=== PATIENT | female | born 1935 | race Caucasian/White ===

== ENCOUNTER 2017-03-09 02:55 | Inpatient (IN) ==
--- NOTE | 2017-03-09 03:10 | Emergency Department Note ---
Arrival - Arrival Chief Complaint: Non-Specific Stated Complaint: hypoglycemia ED Nursing Triage Note: Patient to ED from group home via EMS with c/o episode of hypoglycemia, when nurse at [facility] checked it after patient fell from bed. initial glucose was 24, patient was given glucogon x2 and CBG increased to 54, and EMS was called. upon EMS arrival to facilty CBG was 81. Patient arrives to ED with CBG of 90. Patient has dementia so history is limited other than from paperwork from group home. 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 Patient is now awake and alert conversational and cooperative. Allergies/Adverse Reactions: Allergies Allergy/AdvReac Type Severity Reaction Status Date / Time Sulfa (Sulfonamide AdvReac Severe Confusion Verified 03/09/17 03:10 Antibiotics) Home Medications: Home Medications Medication Instructions Recorded Confirmed Type Aspirin [Ecotrin] 81 mg PO DAILY 10/05/14 02/16/17 History Diltiazem HCl [Diltiazem 24Hr Cd] 120 mg PO DAILY 10/05/14 02/16/17 History Furosemide Tab [Lasix Tab] 40 mg PO DAILY 10/05/14 02/16/17 History Insulin Detemir [Levemir] 20 unit SUBCUT BEDTIME 10/05/14 02/16/17 History Linagliptin [Tradjenta] 5 mg PO DAILY 10/05/14 02/16/17 History Meclizine [Antivert] 25 mg PO TID PRN 10/05/14 02/16/17 History Ranitidine Tab [Zantac Tab] 150 mg PO PRN PRN 10/05/14 02/16/17 History Simvastatin [Zocor] 40 mg PO BEDTIME 10/05/14 02/16/17 History Tizanidine HCl [Zanaflex] 4 mg PO TID PRN 10/05/14 02/16/17 History Potassium Chloride [Klor-Con] 1 packet PO DAILY 09/03/15 02/16/17 History predniSONE TAB 5 mg PO DAILY 09/03/15 02/16/17 History Bimatoprost 0.01% Oph Soln 1 drop BOTH EYES BEDTIME 02/16/17 02/16/17 History [Lumigan] Carvedilol [Coreg] 3.125 mg PO DAILY 02/16/17 02/16/17 History Diclofenac Potassium Tab [Cataflam] 50 mg PO DAILY 02/16/17 02/16/17 History Docusate Sodium [Colace] 200 mg PO BEDTIME 02/16/17 02/16/17 History Donepezil [Aricept] 5 mg PO BEDTIME 02/16/17 02/16/17 History Insulin Aspart [NovoLOG] 8 unit SUBCUT BID@1200,1700 02/16/17 02/16/17 History traMADol/ACETAMINOPH 37.5-325 1 tablet PO BID 02/16/17 02/16/17 History [Ultracet] Citalopram [CeleXA] 40 mg PO DAILY tablet 02/28/17 Rx Gabapentin Cap/Tab [Neurontin 400 mg PO TID capsule 02/28/17 Rx Cap/Tab] busPIRone [Buspar] 5 mg PO BID tablet 02/28/17 Rx Review of System - Review of System Constitutional: Absent: fever, night sweats Eyes: Absent: redness, vision change Head/Ears/Nose/Throat: Absent: epistaxis, nasal drainage Respiratory: Absent: respiratory distress, wheezing Cardiovascular: Absent: dyspnea on exertion Gastrointestinal: Absent: diarrhea, constipation Genitourinary female: Absent: dysuria Musculoskeletal: Absent: joint swelling, leg pain Skin: Absent: change in color, change in hair/nails Neurological: Absent: headache, numbness, paresthesias, vertigo Psychiatric: Absent: anxiety, visual hallucinations Endocrine: Absent: heat intolerance, polydipsia, polyuria Hematological/Lymphatic: Absent: easy bruising, lymphadenopathy Allergic/Immunologic: Absent: urticaria, itchy eyes Medical,Surgical,& Family Hx - Medical History Cardio: History of: Hypertension No history of: CAD, [place] Psychological: History of: Depression Neurology: History of: Dementia, Seizures HEENT: History of: Eye Problem (BLURRY VISION.) Endocrine: History of: Diabetes Mellitus (IDDM), Diabetes Mellitus (NIDDM), Dyslipidemia Rheumatology: History of;: Rheumatoid Arthritis Respiratory: History of: Asthma Genitourinary: History of: Recurring Urinary Tract Infections Gastrointestinal: History of: GERD, Hemorrhoids Musculoskeletal: History of: Back/Neck Problems (CHRONIC BACK PAIN.), Musculoskeletal Problems No history of: Amputation - Surgical History Cardiac Surgeries: Patient Denies: Cardiac Catheterization Thoracic Surgeries: Patient denies;: Organ Transplant, Lobectomy Neurologic Surgeries: Patient denies: Neurologic Surgery HEENT Surgeries: Surgical HX of: Tonsilectomy & Adenoidectomy Abdominal Surgeries: Surgical HX of: Abdominal Surgery (adrenal tumor removal), Appendectomy, Hernia Repair Reproductive Surgeries: Surgical HX of;: Gynecologic Surgery, Hysterectomy Patient denies;: Genitourinary Surgery - Family History Family History: Reports;: Family Diabetes, Family Heart Disease (congestive heart failure), Family Hypertension - Social History Smoking Status: Never smoker Frequency of Alcohol Use: None Type of Drug Use: None Exam Vital Signs: Vital Signs Temperature 95.2 F L 03/09/17 03:02 Pulse Rate 52 L 03/09/17 03:02 Respiratory Rate 18 03/09/17 03:49 Blood Pressure 159/53 03/09/17 03:02 O2 Sat by Pulse Oximetry 97 03/09/17 03:02 - General Exam limited due to: ALOC General appearance: alert, in no apparent distress - Head Head exam: Present: atraumatic - Eye Eye exam: Present: normal appearance, PERRL, EOMI - ENT ENT exam: Present: normal exam, normal oropharynx - Neck Neck exam: Present: normal inspection, full ROM - Chest Chest inspection: Present: normal inspection - Respiratory Respiratory exam: Present: normal lung sounds bilaterally - Cardiovascular Cardiovascular exam: Present: regular rate, normal rhythm - Abdominal Exam Abdominal exam: Present: soft, normal bowel sounds - Extremities Exam Extremities exam: Present: normal inspection, full ROM - Back Exam Back exam: Present: normal inspection, full ROM - Neurological Exam Neurological exam: Present: alert, CN II-XII intact - Skin Skin exam: Present: dry Course Course Narrative: The patient has a 21,000 white blood cell count and his episodes of shivering in the emergency department. Her original presenting complaint was hypoglycemia. A search for a source of a possible infection did not reveal the cause of the elevated white blood cell count. The chest x-ray was normal. The urinalysis was normal. Laboratory tests were normal. Blood cultures were sent. Since the patient is demented and is not a reliable source of history and because she has had episodes of visible chills it seems prudent that she should be treated with antibiotics and admitted to the hospital pending blood culture results and further evaluation. The case was discussed with the hospitalist who agreed to come to the emergency department and evaluate the patient. It is our recommendation that the patient should be admitted for observation. Results - Labs CBC & BMP: 03/09/17 03:31 03/09/17 03:31 Disposition Clinical Impression: Chills, Leukocytosis Disposition: Still a Patient Additional Instructions: The patient has a 21,000 white blood cell count and his episodes of shivering in the emergency department. Her original presenting complaint was hypoglycemia. A search for a source of a possible infection did not reveal the cause of the elevated white blood cell count. The chest x-ray was normal. The urinalysis was normal. Laboratory tests were normal. Blood cultures were sent. Since the patient is demented and is not a reliable source of history and because she has had episodes of visible chills it seems prudent that she should be treated with antibiotics and admitted to the hospital pending blood culture results and further evaluation. The case was discussed with the hospitalist who agreed to come to the emergency department and evaluate the patient. It is our recommendation that the patient should be admitted for observation.
[2017-03-09 03:46] LABS: Basophils # 0.1 10*3/uL (0.0-0.2); Basophils % 0.3 % (0.0-0.8); Eosinophils # 0.2 10*3/uL (0.0-0.87); Hematocrit 40.8 VOL% (35.7-47.0); Hemoglobin 13.8 GM/DL (12.0-16.0); Immature Granulocytes % 1.3 %; Immature Granulocytes Absolute 0.28 #; Lymphocytes # 2.5 10*3/uL (1.4-4.0); Lymphocytes % 11.8 % (21.3-54.2); Mean Corpuscular HGB Conc 33.8 GM/DL (32-36); Mean Corpuscular Hemoglobin 34 PG (27-34); Mean Corpuscular Volume 99.3 FL (87-102); Mean Platelet Volume 10.5 FL (9.6-12.0); Monocytes # 1.2 10*3/uL (0.11-0.8); Monocytes % 5.4 % (1.7-12.7); Neutrophils # 17.2 10*3/uL (1.4-7.4); Neutrophils % 80.2 % (38.7-73.9); Platelet Count 210 T/CUMM (130-400); Red Blood Count 4.11 MC/CUMM (3.8-5.5); Red Cell Distribution Width 12.4 % (9.3-17.3); White Blood Count 21.4 T/CUMM (4-12)
[2017-03-09 04:11] LABS: Albumin 3.5 G/DL (3.4-5.0); Bilirubin,Total 0.4 MG/DL (0.2-1.0); Calcium 9.3 MG/DL (8.5-10.1); Osmolality,Calculated 285.3 MOS/KG (273-304); Potassium 3.6 MMOL/L (3.5-5.1); Total Protein 6.3 G/DL (6.4-8.3)
[2017-03-09] MEDS ORDERED: PIPERACILLIN/TAZOBACTAM 3,375 MG in SODIUM CHLORIDE 0.9% 100 ML IV STA (04:31)
[2017-03-09] MEDS ORDERED: PIPERACILLIN/TAZOBACTAM 3,375 MG VIAL IV ONE (04:32)
[2017-03-09] MEDS ORDERED: SODIUM CHLORIDE 0.9% 100 ML IV ONE (04:32)
[2017-03-09 04:38] LABS: Band Neutrophils 2 % (0-10); Eosinophils 3 % (0-10); Lymphocytes 9 % (20-55); Segmented Neutrophils 83 % (50-85)
[2017-03-09 04:39] LABS: Platelet Estimate Normal; Total Cells Counted 100
[2017-03-09 05:13] LABS: Apearance,Urine CLEAR (Clear); Bilirubin,Urine Negative (Negative); Blood, Urine Negative (Negative); Glucose,Urine (UA) Negative (Negative); Ketones,Urine Negative (Negative); Mucus,Urine Occasional /LPF (Occasional); Nitrite,Urine Negative (Negative); Protein,Urine Negative; RBC,Urine <1 /HPF (0-4); Squamous Epithelial Cell,Urine Occasional /HPF (0-10); Urine Color Yellow (Yellow); Urine Specific Gravity 1.017 (1.001-1.035); Urine Urobilinogen < 2.0 EU/DL (0.2-1.0); WBC,Urine 2 /HPF (0-6)
[2017-03-09] MEDS ORDERED: VANCOMYCIN INJ 1,000 MG in SODIUM CHLORIDE 0.9% 250 ML IV STA (05:53)
[2017-03-09] MEDS ORDERED: VANCOMYCIN 1,000 MG VIAL ONE (05:55)
--- NOTE | 2017-03-09 06:45 | XRay Report ---
Exam: XR chest 1V portable Date: 03/09/2017 4:11 AM Indication: Elevated white blood cell count Comparison: 06/18/2016 Technical: AP Findings: Mild cardiac enlargement is present. ASVD is present. Lateral marginal osteophytes are present. There is calcification in tracheobronchial tree. Surgical changes present in the GE junction. No obvious consolidating infiltrate or effusion or pneumothorax. Impression: 1. Mild cardiomegaly without decompensation 2. Mild scarring in the tracheobronchial airways with calcifications without acute infiltrates 3. ASVD 4. Status post surgical changes GE junction PROCEDURE INTERPRETED AT [facility] DEPARTMENT OF RADIOLOGY Final Report Signed by: Dr. Victoriano Pizarro
[2017-03-09] MEDS ORDERED: SODIUM CHLORIDE 0.9% 500 ML IV STA (12:32)
[2017-03-09] MEDS ORDERED: ACETAMINOPHEN 325 MG TABLET PO PRN (12:32)
[2017-03-09] MEDS ORDERED: ONDANSETRON 4 MG/2 ML VIAL IV PRN (12:32)
[2017-03-09] MEDS ORDERED: GLUCAGON 1 MG VIAL IM PRN (12:32)
[2017-03-09] MEDS ORDERED: DEXTROSE 50% 25 GM/50 ML VIAL IV PRN (12:32)
[2017-03-09] MEDS ORDERED: MAGNESIUM HYDROXIDE SUSP 30 ML UDCUP PO PRN (12:35)
[2017-03-09] MEDS ORDERED: tiZANidine 4 MG TABLET PO PRN (12:35)
--- NOTE | 2017-03-09 12:41 | Family Practice History&Phys ---
Assessment and Plan (1) Hypoglycemia Status: Acute Assessment and plan: 03/09/2017: Blood sugars will be watched closely. Will hold her insulin for now. Current Visit: Yes (2) Leukocytosis Status: Acute Assessment and plan: 03/09/2017: This may be due to her steroid therapy but infectious etiology will be evaluated. Current Visit: Yes History of Present Illness Chief complaint: Hypoglycemia History of present illness: Ms. Cabrera is a 81 year old female Patient 81-year-old white female presents emergency room with recurring episodes of hypoglycemia. Patient does have dementia and is unable provide much in the way of useful history. She is denies any urinary symptoms she has not had any cough or any respiratory symptoms. Patient states she is not having any abdominal pain or nausea or vomiting. She did eat breakfast after arriving here in the emergency room repeat blood sugar dropped back down to 88 shortly thereafter. Patient has back pain which is a chronic problem for her. Home Medications Medication Instructions Recorded Confirmed Type Aspirin [Ecotrin] 81 mg PO DAILY 10/05/14 03/09/17 History Diltiazem HCl [Diltiazem 24Hr Cd] 120 mg PO DAILY 10/05/14 03/09/17 History Furosemide Tab [Lasix Tab] 40 mg PO DAILY 10/05/14 03/09/17 History Insulin Detemir [Levemir] 20 unit SUBCUT BEDTIME 10/05/14 03/09/17 History Linagliptin [Tradjenta] 5 mg PO DAILY 10/05/14 03/09/17 History Meclizine [Antivert] 25 mg PO TID PRN 10/05/14 03/09/17 History Ranitidine Tab [Zantac Tab] 150 mg PO Q24H PRN 10/05/14 03/09/17 History Simvastatin [Zocor] 40 mg PO BEDTIME 10/05/14 03/09/17 History Tizanidine HCl [Zanaflex] 4 mg PO TID PRN 10/05/14 03/09/17 History predniSONE TAB 5 mg PO DAILY 09/03/15 03/09/17 History Bimatoprost 0.01% Oph Soln 1 drop BOTH EYES BEDTIME 02/16/17 03/09/17 History [Lumigan] Carvedilol [Coreg] 3.125 mg PO DAILY 02/16/17 03/09/17 History Diclofenac Potassium Tab [Cataflam] 50 mg PO DAILY 02/16/17 03/09/17 History Docusate Sodium [Colace] 200 mg PO BEDTIME 02/16/17 03/09/17 History Donepezil [Aricept] 5 mg PO BEDTIME 02/16/17 03/09/17 History Insulin Aspart [NovoLOG] 8 unit SUBCUT BID@1200,1700 02/16/17 03/09/17 History traMADol/ACETAMINOPH 37.5-325 1 tablet PO BID 02/16/17 03/09/17 History [Ultracet] Citalopram [CeleXA] 40 mg PO DAILY tablet 02/28/17 03/09/17 Rx Gabapentin Cap/Tab [Neurontin 400 mg PO TID capsule 02/28/17 03/09/17 Rx Cap/Tab] busPIRone [Buspar] 5 mg PO BID tablet 02/28/17 03/09/17 Rx Magnesium Hydroxide [Milk of 30 ml PO Q24H PRN 03/09/17 03/09/17 History Magnesia] Potassium Chloride 20 meq PO DAILY 03/09/17 03/09/17 History Allergies Allergy/AdvReac Type Severity Reaction Status Date / Time Sulfa (Sulfonamide AdvReac Severe Confusion Verified 03/09/17 03:10 Antibiotics) - Constitutional Constitutional: Present: weakness. Absent: chills, fever(s) - EENT Eyes: Absent: blurry vision, loss of vision Ears: Absent: decreased hearing, ear pain Nose, mouth and throat: Absent: nasal congestion, sinus pressure, sore throat - Cardiovascular Cardiovascular: Absent: chest pain at rest, dyspnea, orthopnea, palpitations, PND - Respiratory Respiratory: Absent: cough, dyspnea, wheezing - Gastrointestinal Gastrointestinal: Absent: abdominal pain, diarrhea, hematemesis, hematochezia, nausea, vomiting - Genitourinary Genitourinary: Absent: dysuria, hematuria, urinary frequency, urinary hesitancy - Musculoskeletal Musculoskeletal: Present: back pain (Chronic). Absent: joint swelling - Neurological Neurological: Absent: confusion, focal weakness, numbness, paresthesias - Psychiatric Psychiatric: Absent: anxiety, confusion, depression - Endocrine Endocrine: Absent: fatigue, polydipsia, polyphagia - Hematologic/Lymphatic Hematologic/Lymphatic: Absent: easy bleeding, easy bruising Medical,Surgical,& Family Hx - Medical History Cardio: History of: Hypertension No history of: CAD, [place] Psychological: History of: Depression Neurology: History of: Dementia, Seizures HEENT: History of: Eye Problem (BLURRY VISION.) Endocrine: History of: Diabetes Mellitus (IDDM), Diabetes Mellitus (NIDDM), Dyslipidemia Rheumatology: History of;: Rheumatoid Arthritis Respiratory: History of: Asthma Genitourinary: History of: Recurring Urinary Tract Infections Gastrointestinal: History of: GERD, Hemorrhoids Musculoskeletal: History of: Back/Neck Problems (CHRONIC BACK PAIN.), Musculoskeletal Problems No history of: Amputation - Surgical History Cardiac Surgeries: Patient Denies: Cardiac Catheterization Thoracic Surgeries: Patient denies;: Organ Transplant, Lobectomy Neurologic Surgeries: Patient denies: Neurologic Surgery HEENT Surgeries: Surgical HX of: Tonsilectomy & Adenoidectomy Abdominal Surgeries: Surgical HX of: Abdominal Surgery (adrenal tumor removal), Appendectomy, Hernia Repair Reproductive Surgeries: Surgical HX of;: Gynecologic Surgery, Hysterectomy Patient denies;: Genitourinary Surgery - Family History Family History: Reports;: Family Diabetes, Family Heart Disease (congestive heart failure), Family Hypertension - Social History Smoking Status: Never smoker Frequency of Alcohol Use: None Type of Drug Use: None Exam - Constitutional Vitals: Period Temp Pulse Resp BP Sys/Llamas Pulse Ox Last 24 Hr 95.2 F-97.6 F 48-55 16-18 126-159/45-57 97-100 Exam: General: Objective patient is a well-developed white female in no acute distress. Patient's dementia prevents her from providing much in the way of useful history. HEENT: Pupils equal and reactive to light. Patent nares and airway Neck: No meningismus, adenopathy, thyromegaly. There are no auscultated carotid bruits. Cardiovascular: Regular rhythm. No murmurs or gallops Chest: Clear to auscultation without rales rhonchi wheezes. Abdomen: Soft nontender to palpation No masses, rebound, guarding or tenderness. Neuro: Cranial nerves intact and DTRs and strength symmetric in all extremities. Dermatologic: No evidence of abnormal lesions or masses. Musculoskeletal: There is no joint swelling or tenderness or deformity. Extremities: There is no calf swelling or tenderness. Results - Labs CBC & BMP: 03/09/17 03:31 03/09/17 03:31 Lab Results: I have reviewed the past 24 hour labs - Diagnostic Findings Procedure: Chest x-ray: report reviewed by me (No acute abnormality)
[2017-03-09] MEDS: GABAPENTIN 400 MG CAPSULE PO SCH ×2 (18:18→21:29)
[2017-03-09] MEDS: SODIUM CHLORIDE 0.45% 1,000 ML IV SCH ×2 (18:18→21:45)
[2017-03-09] MEDS: PIPERACILLIN/TAZOBACTAM 3,375 MG in SODIUM CHLORIDE 0.9% 100 ML IV SCH (18:19)
[2017-03-09] MEDS: INSULIN REGULAR 100 UNIT/ML SUBCUT SCH ×2 (18:30→21:44)
[2017-03-09] MEDS ORDERED: ENOXAPARIN 40 MG/0.4 ML SYRINGE SUBCUT SCH (21:00)
[2017-03-09] MEDS ORDERED: DONEPEZIL 5 MG TABLET PO SCH (21:00)
[2017-03-09] MEDS ORDERED: BIMATOPROST 0.01% OPH SOLN 2.5 ML BOTTLE BOTH EYES SCH (21:00)
[2017-03-09] MEDS: DOCUSATE SODIUM 100 MG CAPSULE PO SCH (21:22)
[2017-03-09] MEDS: ACETAMINOPHEN 325 MG TABLET PO SCH (21:23)
[2017-03-09] MEDS: busPIRone 5 MG TABLET PO SCH (21:23)
[2017-03-09] MEDS: traMADol 50 MG TABLET PO SCH (21:24)
[2017-03-10] MEDS: PIPERACILLIN/TAZOBACTAM 3,375 MG in SODIUM CHLORIDE 0.9% 100 ML IV SCH ×2 (03:00→09:46)
[2017-03-10 05:45] LABS: Basophils # 0.1 10*3/uL (0.0-0.2); Basophils % 0.5 % (0.0-0.8); Eosinophils # 0.3 10*3/uL (0.0-0.87); Eosinophils % 3.2 % (0.00-10.9); Hematocrit 35.9 VOL% (35.7-47.0); Immature Granulocytes % 0.5 %; Immature Granulocytes Absolute 0.05 #; Lymphocytes # 3.3 10*3/uL (1.4-4.0); Lymphocytes % 31.8 % (21.3-54.2); Mean Corpuscular HGB Conc 32.9 GM/DL (32-36); Mean Corpuscular Hemoglobin 33 PG (27-34); Mean Corpuscular Volume 101.1 FL (87-102); Mean Platelet Volume 10.8 FL (9.6-12.0); Monocytes # 0.9 10*3/uL (0.11-0.8); Monocytes % 8.5 % (1.7-12.7); Neutrophils # 5.8 10*3/uL (1.4-7.4); Neutrophils % 55.5 % (38.7-73.9); Platelet Count 181 T/CUMM (130-400); Red Blood Count 3.55 MC/CUMM (3.8-5.5); Red Cell Distribution Width 12.3 % (9.3-17.3)
[2017-03-10] MEDS: SODIUM CHLORIDE 0.45% 1,000 ML IV SCH ×2 (05:50→14:32)
[2017-03-10 05:58] LABS: Hemoglobin 11.8 GM/DL (12.0-16.0); White Blood Count 10.5 T/CUMM (4-12)
[2017-03-10 06:17] LABS: Calcium 8.5 MG/DL (8.5-10.1); Osmolality,Calculated 285.1 MOS/KG (273-304)
--- NOTE | 2017-03-10 07:48 | Family Practice Progress Note ---
Family Practice - PN: Subj Interval history: Patient had a fairly good night but had 2 bouts of diarrhea last night. She denies any abdominal pain and she is not having any cough or respiratory symptoms. Exam (Progress Note) - Constitutional Vitals: Period Temp Pulse Resp BP Sys/Llamas Pulse Ox Last 24 Hr 97.0 F-98.4 F 50-68 16-20 69-152/42-58 95-99 Exam: Objective well-developed white female who is awake alert she has her usual confusion. Patient is noted to have a tiny spot of erythema on her left second toe and a small early skin breakdown in her sacral area. Will ask wound care to see her. Cardiovascular: Heart rates regular without murmurs Respiratory: Lungs clear to auscultation bilaterally. Abdomen: Abdomen soft and nontender to palpation. Results - Labs CBC & BMP: 03/10/17 05:28 03/10/17 05:28 Lab Results: I have reviewed the past 24 hour labs Assessment and Plan (1) Hypoglycemia Status: Acute Assessment and plan: 03/09/2017: Blood sugars will be watched closely. Will hold her insulin for now. 03/10/2017: Patient's blood sugars have been well controlled through the night with no hypoglycemia. Current Visit: Yes (2) Leukocytosis Status: Acute Assessment and plan: 03/09/2017: This may be due to her steroid therapy but infectious etiology will be evaluated. 03/10/2017: Her white blood count has normalized. Stool studies have been ordered. Current Visit: Yes
[2017-03-10] MEDS: INSULIN REGULAR 100 UNIT/ML SUBCUT SCH ×3 (08:52→17:45)
[2017-03-10] MEDS ORDERED: DILTIAZEM CD 240 MG CAPSULE PO SCH (09:00)
[2017-03-10] MEDS ORDERED: DILTIAZEM CD 120 MG CAPSULE PO SCH (09:00)
[2017-03-10] MEDS ORDERED: ASPIRIN EC 81 MG TABLET PO SCH (09:00)
[2017-03-10] MEDS ORDERED: CARVEDILOL 3.125 MG TABLET PO SCH (09:00)
[2017-03-10] MEDS ORDERED: predniSONE 5 MG TABLET PO SCH (09:00)
[2017-03-10] MEDS ORDERED: PANTOPRAZOLE 40 MG TABLET PO SCH (09:00)
[2017-03-10] MEDS ORDERED: FUROSEMIDE 40 MG TABLET PO SCH (09:00)
[2017-03-10] MEDS ORDERED: CITALOPRAM 20 MG TABLET PO SCH (09:00)
[2017-03-10] MEDS ORDERED: sitaGLIPtin 100 MG TABLET PO SCH ×2 (09:00)
[2017-03-10] MEDS: busPIRone 5 MG TABLET PO SCH (09:33)
[2017-03-10] MEDS: DOCUSATE SODIUM 100 MG CAPSULE PO SCH (09:35)
[2017-03-10] MEDS: GABAPENTIN 400 MG CAPSULE PO SCH ×2 (09:36→17:36)
[2017-03-10] MEDS: ACETAMINOPHEN 325 MG TABLET PO SCH (09:37)
[2017-03-10] MEDS: traMADol 50 MG TABLET PO SCH (09:37)
[2017-03-10] MEDS ORDERED: SKIN HEALING OINT (AQUAPHOR) 50 GM TUBE TOP PRN (11:14)
[2017-03-10] MEDS ORDERED: ZINC OXIDE PASTE 113 GM TUBE TOP SCH (11:30)
--- NOTE | 2017-03-10 16:17 | Discharge Summary ---
Hospital Course - Hospital Course Hospital Course: Patient 81-year-old white female admitted to the emergency room with leukocytosis and slight confusion. She was found to be hypoglycemic. Patient had no real complaint of any pain or discomfort anywhere. She is admitted my services cultures the blood were obtained which were negative. Patient had had some brief diarrhea but it subsided and she had no diarrhea on the day of discharge. Patient returned to her normal and was anxious to return to the assisted. She will be discharged later today and I will follow-up with her in the assisted. Diagnosis - Discharge Diagnosis (1) Hypoglycemia Status: Acute (2) Leukocytosis Status: Acute Discharge Plan - Discharge Data Disposition: Disch To Home/Self Care Condition at Discharge: Stable Discharge Diet: advance to your usual diet Activity: as per physical therapy Hygiene: no restrictions Weight Bearing at Discharge: full weight bearing Driving: no restrictions Contact your physician if you experience:: fever over 101 - Discharge Medications New Skin Healing Oint (Aquaphor) [Aquaphor] 1 applic TOP PRN PRN #60 mg PRN Reason: Dry Skin Continue Insulin Detemir [Levemir] 20 unit SUBCUT BEDTIME Tizanidine HCl [Zanaflex] 4 mg PO TID PRN PRN Reason: Pain Furosemide Tab [Lasix Tab] 40 mg PO DAILY Linagliptin [Tradjenta] 5 mg PO DAILY Ranitidine Tab [Zantac Tab] 150 mg PO Q24H PRN PRN Reason: Reflux Simvastatin [Zocor] 40 mg PO BEDTIME Meclizine [Antivert] 25 mg PO TID PRN PRN Reason: Dizziness Aspirin [Ecotrin] 81 mg PO DAILY predniSONE TAB 5 mg PO DAILY Magnesium Hydroxide [Milk of Magnesia] 30 ml PO Q24H PRN PRN Reason: Constipation Potassium Chloride 20 meq PO DAILY dilTIAZem HCl [Diltiazem ER (24 hr)] 120 mg PO DAILY traMADol/ACETAMINOPH 37.5-325 [Ultracet] 1 tablet PO BID busPIRone [Buspar] 5 mg PO BID tablet Citalopram [CeleXA] 40 mg PO DAILY tablet Gabapentin Cap/Tab [Neurontin Cap/Tab] 400 mg PO TID capsule Carvedilol [Coreg] 3.125 mg PO DAILY Docusate Sodium [Colace] 200 mg PO BEDTIME Diclofenac Potassium Tab [Cataflam] 50 mg PO DAILY Bimatoprost 0.01% Oph Soln [Lumigan] 1 drop BOTH EYES BEDTIME Donepezil [Aricept] 5 mg PO BEDTIME Insulin Aspart [NovoLOG] 8 unit SUBCUT BID@1200,1700 - Follow Up or Referral - Forms/Instructions Exam - Constitutional Vitals: Period Temp Pulse Resp BP Sys/Llamas Pulse Ox Last 24 Hr 97.0 F-98.4 F 55-72 16-20 69-198/42-79 94-97 Exam: Objective well-developed white female who is awake alert she has her usual confusion. Patient states he feels much better and is ready go back to the assisted. Cardiovascular: Heart rates regular without murmurs Respiratory: Lungs clear to auscultation bilaterally. Abdomen: Abdomen soft and nontender to palpation. Discharge Results Procedures and tests throughout hospitalization: Pending Orders 03/09/17 04:37 Blood Culture Stat 03/10/17 Urine Culture Stat 03/10/17 07:44 Stool Culture Stat stool [C. Diff Toxins A & B] Stat Labs on day of discharge: Labs from last 24 hours 03/10/17 03/10/17 03/10/17 11:22 07:20 05:28 WBC RBC Hgb Hct MCV MCH MCHC RDW Plt Count MPV Neut % (Auto) Lymph % (Auto) [place] % (Auto) Eos % (Auto) Baso % (Auto) Neut # (Auto) Lymph # (Auto) [place] # (Auto) Eos # (Auto) Baso # (Auto) Immature Gran % Nucleated RBC % Immature Gran # Nucleated RBCs # Immature Plt Fraction Sodium 142 Potassium 5.0 Chloride 107 Carbon Dioxide 31 Anion Gap 9.0 BUN 17 Creatinine 1.00 GFR Calculation 58 BUN/Creatinine Ratio 17.00 Glucose 120 H POC Glucose 162 H 125 H Calculated Osmolality 285.1 Calcium 8.5 03/10/17 03/09/17 05:28 21:35 WBC 10.5 D RBC 3.55 L Hgb 11.8 L D Hct 35.9 MCV 101.1 MCH 33 MCHC 32.9 RDW 12.3 Plt Count 181 MPV 10.8 Neut % (Auto) 55.5 Lymph % (Auto) 31.8 [place] % (Auto) 8.5 Eos % (Auto) 3.2 Baso % (Auto) 0.5 Neut # (Auto) 5.8 Lymph # (Auto) 3.3 [place] # (Auto) 0.9 H Eos # (Auto) 0.3 Baso # (Auto) 0.1 Immature Gran % 0.5 Nucleated RBC % 0.0 Immature Gran # 0.05 Nucleated RBCs # 0.00 Immature Plt Fraction 0.0 Sodium Potassium Chloride Carbon Dioxide Anion Gap BUN Creatinine GFR Calculation BUN/Creatinine Ratio Glucose POC Glucose 140 H Calculated Osmolality Calcium Preliminary micro results at discharge 03/09/17 04:37 Blood Culture - Preliminary Blood No growth at 1 day 03/09/17 04:22 Blood Culture - Preliminary Blood No growth at 1 day 03/10/2017: Blood cultures are negative. DS: Provider Date of admission: 03/09/17 12:32 Primary care physician: Lemuel Avendaño MD Attending physician on admission: Lemuel Avendaño MD Consults: 03/09/17 12:32 Consult to Case Mgmt/Social Srvs [CONS] Routine Reason for Case Mgmt/Social Srvs: Discharge Planning 03/09/17 17:21 Consult to [facility], Educator [CONS] Routine Reason for Associate Dean: Other Consult Comment: Multiple hypoglycemic episodes 03/10/17 07:44 Consult to Wound Care - [place] [CONS] Routine Reason for Wound Care: Wound Care Management Discharging clinician: Lemuel Avendaño MD Expected date of discharge: 03/10/17
[2017-03-10 16:40] VITALS: BP 127/48
== END 2017-03-10 17:57 | DRG 639 ==
LOC: EDBD → EDUNIT# → N.ED 02:55 → N.EDINP 12:32 → N.2E 15:44
PROVIDERS: ADMIT Family Medicine; ATTEND Family Medicine

== ENCOUNTER 2020-03-08 20:10 | Observation (INO) ==
[2020-03-08] MEDS ORDERED: DEXTROSE 50% 25 GM/50 ML SYRINGE IV ONE (20:22)
[2020-03-08] MEDS ORDERED: DEXTROSE 50% 25 GM/50 ML VIAL IV STA (20:23)
[2020-03-08 20:40] LABS: Basophils # 0.1 10*3/uL (0.0-0.2); Basophils % 0.3 % (0.0-0.8); Eosinophils # 0.1 10*3/uL (0.0-0.87); Eosinophils % 0.3 % (0.00-10.9); Hematocrit 36.9 VOL% (35.7-47.0); Hemoglobin 11.8 GM/DL (12.0-16.0); Immature Granulocytes % 0.6 %; Immature Granulocytes Absolute 0.12 #; Lymphocytes % 10.4 % (21.3-54.2); Mean Corpuscular Volume 101.1 FL (87-102); Mean Platelet Volume 10.6 FL (9.6-12.0); Monocytes % 4.3 % (1.7-12.7); Neutrophils % 84.1 % (38.7-73.9); Platelet Count 158 T/CUMM (130-400); Red Blood Count 3.65 MC/CUMM (3.8-5.5); Red Cell Distribution Width 12.5 % (9.3-17.3); White Blood Count 18.8 T/CUMM (4-12)
[2020-03-08 20:57] LABS: Albumin 3.2 G/DL (3.4-5.0); Bilirubin,Total 0.4 MG/DL (0.2-1.0); Calcium 8.4 MG/DL (8.5-10.1); Total Protein 6.4 G/DL (6.4-8.3)
[2020-03-08 21:09] LABS: Amorphous Crystals,Urine Occasional /HPF (Few); Apearance,Urine Slightly Hazy (Clear); Bilirubin,Urine Negative (Negative); Blood, Urine Negative (Negative); Glucose,Urine (UA) >=500 mg/dL (Negative); Hyaline Casts,Urine 100 /LPF (0-3); Ketones,Urine Negative (Negative); Mucus,Urine Occasional /LPF (Occasional); Nitrite,Urine Negative (Negative); Protein,Urine Negative; Squamous Epithelial Cell,Urine Occasional /HPF (0-10); Urine Color Yellow (Yellow); Urine Specific Gravity 1.014 (1.001-1.035); Urine Urobilinogen < 2.0 EU/DL (0.2-1.0); WBC,Urine 3 /HPF (0-6)
[2020-03-08] MEDS ORDERED: cefTRIAXone 1,000 MG in SODIUM CHLORIDE 0.9% 100 ML IV STA (21:43)
[2020-03-08] MEDS ORDERED: ACETAMINOPHEN 325 MG TABLET PO PRN (22:08)
[2020-03-08] MEDS ORDERED: GLUCAGON 1 MG VIAL IM PRN (22:08)
[2020-03-08] MEDS ORDERED: ONDANSETRON 4 MG/2 ML VIAL IV PRN (22:08)
[2020-03-08] MEDS ORDERED: DEXTROSE 50% 25 GM/50 ML VIAL IV PRN (22:08)
[2020-03-08] MEDS: SODIUM CHLORIDE 0.9% 1,000 ML IV SCH (23:20)
[2020-03-08] MEDS: INSULIN REGULAR 100 UNIT/ML SUBCUT SCH (23:55)
[2020-03-09 05:45] LABS: Basophils % 0.3 % (0.0-0.8); Eosinophils # 0.2 10*3/uL (0.0-0.87); Eosinophils % 1.9 % (0.00-10.9); Hematocrit 35.4 VOL% (35.7-47.0); Hemoglobin 11.5 GM/DL (12.0-16.0); Immature Granulocytes % 0.5 %; Immature Granulocytes Absolute 0.06 #; Lymphocytes # 3.6 10*3/uL (1.4-4.0); Lymphocytes % 29.9 % (21.3-54.2); Mean Corpuscular HGB Conc 32.5 GM/DL (32-36); Mean Corpuscular Volume 99.4 FL (87-102); Monocytes % 8.1 % (1.7-12.7); Neutrophils % 59.3 % (38.7-73.9); Platelet Count 157 T/CUMM (130-400); Red Blood Count 3.56 MC/CUMM (3.8-5.5); Red Cell Distribution Width 12.4 % (9.3-17.3); White Blood Count 11.9 T/CUMM (4-12)
[2020-03-09 06:42] LABS: Albumin 2.9 G/DL (3.4-5.0); Calcium 8.6 MG/DL (8.5-10.1); Osmolality,Calculated 287.3 MOS/KG (273-304); Total Protein 6.2 G/DL (6.4-8.3)
[2020-03-09] MEDS: INSULIN REGULAR 100 UNIT/ML SUBCUT SCH ×4 (07:27→23:39)
[2020-03-09] MEDS ORDERED: LEVOFLOXACIN INJ 500 MG in PREMIX 1 EACH IV ONE (08:02)
[2020-03-09] MEDS: PANTOPRAZOLE 40 MG TABLET PO SCH (09:32)
[2020-03-09] MEDS: SODIUM CHLORIDE 0.9% 1,000 ML IV SCH ×2 (09:39→09:40)
[2020-03-09] MEDS ORDERED: HALOPERIDOL 5 MG/ML AMP IM PRN (11:41)
[2020-03-09] MEDS ORDERED: HALOPERIDOL 5 MG/ML AMP IM ONE (11:44)
[2020-03-09] MEDS ORDERED: MAGNESIUM HYDROXIDE SUSP 30 ML UDCUP PO PRN (19:21)
[2020-03-09] MEDS ORDERED: tiZANidine 4 MG TABLET PO PRN (19:55)
[2020-03-09] MEDS: TRAMADOL ACETAMINOPHEN PO SCH (20:19)
[2020-03-09] MEDS: QUEtiapine 25 MG TABLET PO SCH ×2 (20:21→22:00)
[2020-03-09] MEDS: DONEPEZIL 5 MG TABLET PO SCH ×2 (20:21→22:00)
[2020-03-09] MEDS: busPIRone 10 MG TABLET PO SCH ×2 (20:21→22:00)
[2020-03-09] MEDS: GABAPENTIN 400 MG CAPSULE PO SCH ×2 (20:21→22:00)
[2020-03-09] MEDS: SIMVASTATIN 40 MG TABLET PO SCH ×2 (20:22→22:00)
[2020-03-09] MEDS: BIMATOPROST 0.01% OPH SOLN 2.5 ML BOTTLE BOTH EYES SCH ×2 (20:22→22:00)
[2020-03-09] MEDS: MEMANTINE 10 MG TABLET PO SCH ×2 (20:22→22:00)
[2020-03-09] MEDS: DOCUSATE SODIUM 100 MG CAPSULE PO SCH ×2 (20:22→22:00)
[2020-03-09] MEDS: FLUoxetine 20 MG CAPSULE PO SCH ×2 (20:25→22:00)
[2020-03-09] MEDS ORDERED: LORazepam 2 MG/1 ML VIAL IV ONE (20:57)
[2020-03-09] MEDS ORDERED: cefTRIAXone 1,000 MG in SYRINGE 1 EACH IV SCH (21:00)
[2020-03-10] MEDS ORDERED: LORazepam 2 MG/1 ML VIAL IV ONE (01:30)
[2020-03-10] MEDS: SODIUM CHLORIDE 0.9% 1,000 ML IV SCH (02:51)
[2020-03-10] MEDS: INSULIN REGULAR 100 UNIT/ML SUBCUT SCH ×2 (03:23→08:50)
[2020-03-10 06:00] LABS: Basophils % 0.4 % (0.0-0.8); Eosinophils # 0.2 10*3/uL (0.0-0.87); Eosinophils % 1.9 % (0.00-10.9); Hematocrit 35.3 VOL% (35.7-47.0); Hemoglobin 11.5 GM/DL (12.0-16.0); Immature Granulocytes % 0.4 %; Immature Granulocytes Absolute 0.04 #; Lymphocytes # 2.6 10*3/uL (1.4-4.0); Lymphocytes % 27.5 % (21.3-54.2); Mean Corpuscular HGB Conc 32.6 GM/DL (32-36); Mean Corpuscular Volume 98.6 FL (87-102); Mean Platelet Volume 10.9 FL (9.6-12.0); Monocytes % 7.4 % (1.7-12.7); Neutrophils % 62.4 % (38.7-73.9); Platelet Count 172 T/CUMM (130-400); Red Blood Count 3.58 MC/CUMM (3.8-5.5); Red Cell Distribution Width 12.3 % (9.3-17.3); White Blood Count 9.4 T/CUMM (4-12)
[2020-03-10 06:19] LABS: Calcium 8.6 MG/DL (8.5-10.1); Osmolality,Calculated 287.3 MOS/KG (273-304)
[2020-03-10 06:30] LABS: Hypochromasia 1+; Ovalocytes Slight; Platelet Estimate Adequate
[2020-03-10 07:51] VITALS: BP 151/78
[2020-03-10] MEDS ORDERED: carvediloL 3.125 MG TABLET PO SCH (08:00)
[2020-03-10] MEDS: PANTOPRAZOLE 40 MG TABLET PO SCH (08:49)
[2020-03-10] MEDS: GABAPENTIN 400 MG CAPSULE PO SCH (08:49)
[2020-03-10] MEDS: MEMANTINE 10 MG TABLET PO SCH (08:49)
[2020-03-10] MEDS: FLUoxetine 20 MG CAPSULE PO SCH (08:49)
[2020-03-10] MEDS ORDERED: FUROSEMIDE 40 MG TABLET PO SCH (09:00)
[2020-03-10] MEDS ORDERED: DICLOFENAC SODIUM 50 MG TABLET PO SCH (09:00)
[2020-03-10] MEDS ORDERED: busPIRone 5 MG TABLET PO SCH (09:00)
[2020-03-10] MEDS ORDERED: ASPIRIN EC 81 MG TABLET PO SCH (09:00)
[2020-03-10] MEDS ORDERED: CYANOCOBALAMIN 500 MCG TABLET PO SCH (09:00)
[2020-03-10] MEDS ORDERED: INSULIN GLARGINE 100 UNIT/ML SUBCUT SCH (09:00)
[2020-03-10] MEDS ORDERED: DILTIAZEM CD 120 MG CAPSULE PO SCH (09:00)
[2020-03-10] MEDS ORDERED: traMADol 50 MG TABLET PO SCH ×2 (09:30)
[2020-03-10] MEDS ORDERED: sitaGLIPtin 100 MG TABLET PO SCH (09:30)
[2020-03-10] MEDS ORDERED: ACETAMINOPHEN 325 MG TABLET PO SCH (09:30)
[2020-03-10] MEDS: TRAMADOL ACETAMINOPHEN PO SCH (10:20)
== END 2020-03-10 10:55 ==
LOC: EDUNIT# → EDBD → N.ED 20:10 → N.EDINP 20:10 → N.3E 22:47
PROVIDERS: ADMIT Family Medicine; ATTEND Family Medicine

== ENCOUNTER 2021-09-15 22:23 | Inpatient (IN) ==
[2021-09-15] MEDS ORDERED: SODIUM CHLORIDE 0.9% 500 ML IV STA ×2 (22:49→23:59)
[2021-09-15 23:14] LABS: Basophils # 0.1 10*3/uL (0.0-0.2); Basophils % 0.2 % (0.0-0.8); Eosinophils # 0.2 10*3/uL (0.0-0.87); Eosinophils % 0.7 % (0.00-10.9); Hematocrit 33.5 VOL% (35.7-47.0); Hemoglobin 10.4 GM/DL (12.0-16.0); Immature Granulocytes % 2.1 %; Lymphocytes # 1.9 10*3/uL (1.4-4.0); Lymphocytes % 5.5 % (21.3-54.2); Mean Corpuscular Volume 103.4 FL (87-102); Mean Platelet Volume 11.4 FL (9.6-12.0); Monocytes % 5.8 % (1.7-12.7); Neutrophils % 85.7 % (38.7-73.9); Platelet Count 202 T/CUMM (130-400); Red Blood Count 3.24 MC/CUMM (3.8-5.5); Red Cell Distribution Width 13.2 % (9.3-17.3); White Blood Count 33.6 T/CUMM (4-12)
[2021-09-15 23:33] LABS: Glucose,Urine (UA) Negative (Negative); Protein,Urine Trace mg/dL (Negative); Urine Appearance SL CLOUDY (Clear); Urine Color Yellow (Yellow); Urine pH 5.5 (4.5-8.0)
[2021-09-15 23:33] LABS: INR 1.1; PT Patient Result 11.7 SECS (10.5-12.0)
[2021-09-15 23:34] LABS: Bilirubin,Urine Small mg/dL (Negative); Blood, Urine Negative (Negative); Ketones,Urine Trace mg/dL (Negative); Nitrite,Urine Negative (Negative); Urine Urobilinogen 0.2 eU/dL (<2.0)
[2021-09-15 23:37] LABS: Albumin 2.7 G/DL (3.4-5.0); Bilirubin,Total 0.4 MG/DL (0.20-1.00); Calcium 8.6 MG/DL (8.5-10.1); Potassium 4.2 MMOL/L (3.5-5.1); Total Protein 5.9 G/DL (6.4-8.2)
[2021-09-15 23:39] LABS: Bacteria,Urine Occasional /HPF (Few); Hyaline Casts,Urine 20 /LPF (0-3); Mucus,Urine Few /LPF (Occasional); RBC,Urine 1 /HPF (0-4); Squamous Epithelial Cell,Urine Occasional /HPF (0-10)
[2021-09-15 23:54] LABS: Barbiturates Screen,Urine Negative (Negative); Benzodiazepines Screen,Urine Negative (Negative); Cannabinoid Screen,Urine Negative (Negative); Opiate Screen,Urine Negative (Negative); Phencyclidine Screen,Urine Negative (Negative)
[2021-09-15 23:56] LABS: Eosinophils 2 % (0-10); Lymphocytes 4 % (20-55); Platelet Estimate Adequate; Segmented Neutrophils 92 % (50-85); Total Cells Counted 100
[2021-09-15] MEDS ORDERED: VANCOMYCIN INJ 1,000 MG in SODIUM CHLORIDE 0.9% 250 ML IV STA (23:58)
[2021-09-15] MEDS ORDERED: CEFEPIME 1,000 MG in SODIUM CHLORIDE 0.9% 100 ML IV STA (23:58)
[2021-09-16 00:28] LABS: ABG Base Excess 0.2 MMOL/L (-2.5-2.5); ABG HCO3 24.6 MMOL/L (20-26); ABG Oxygen Saturation 92.3 % (95-100); ABG PCO2 47.3 MM HG (35-48); ABG PH 7.351 (7.35-7.45); ABG PO2 71.7 MM HG (80-95); ABG TCO2 24.1 MMOL/L (23-27)
[2021-09-16] MEDS ORDERED: NOREPINEPHRINE 8 MG in SODIUM CHLORIDE 0.9% 242 ML IV PRN (01:15)
[2021-09-16] MEDS ORDERED: NOREPINEPHRINE 4 MG/4 ML VIAL IV ONE (01:18)
[2021-09-16] MEDS: SODIUM CHLORIDE 0.9% 1,000 ML IV SCH ×2 (01:28→11:11)
[2021-09-16] MEDS ORDERED: ONDANSETRON 4 MG/2 ML VIAL IV PRN (02:23)
[2021-09-16] MEDS ORDERED: ACETAMINOPHEN 325 MG TABLET PO PRN (02:23)
[2021-09-16] MEDS ORDERED: VANCOMYCIN INJ 1,250 MG in SODIUM CHLORIDE 0.9% 250 ML IV PRN (02:30)
[2021-09-16] MEDS: DEXTROSE 5% NACL 0.9% 1,000 ML IV SCH ×3 (02:57→17:54)
[2021-09-16 04:18] LABS: Basophils # 0.1 10*3/uL (0.0-0.2); Basophils % 0.2 % (0.0-0.8); Eosinophils # 0.2 10*3/uL (0.0-0.87); Eosinophils % 0.5 % (0.00-10.9); Immature Granulocytes % 2.3 %; Immature Granulocytes Absolute 0.76 #; Lymphocytes % 5.8 % (21.3-54.2); Mean Corpuscular HGB Conc 31.3 GM/DL (32-36); Mean Corpuscular Volume 103.6 FL (87-102); Mean Platelet Volume 11.2 FL (9.6-12.0); Neutrophils % 86.2 % (38.7-73.9); Platelet Count 188 T/CUMM (130-400); Red Blood Count 3.09 MC/CUMM (3.8-5.5); Red Cell Distribution Width 13.5 % (9.3-17.3); White Blood Count 33.5 T/CUMM (4-12)
[2021-09-16 04:38] LABS: Hypochromia Slight; Lymphocytes 5 % (20-55); Microcytosis Slight; Platelet Estimate Adequate; Segmented Neutrophils 90 % (50-85); Total Cells Counted 100
[2021-09-16 04:39] LABS: Alanine Aminotransferase < 9 U/L (13-56); Albumin 2.3 G/DL (3.4-5.0); Alkaline Phosphatase 76 U/L (45-117); Aspartate Amino Transferase 15 U/L (0-37); Bilirubin,Total < 0.39 MG/DL (0.20-1.00); Blood Urea Nitrogen 37 MG/DL (7-18); Calcium 8.2 MG/DL (8.5-10.1); Carbon Dioxide 31 MMOL/L (21-32); Glucose 90 MG/DL (74-106); Osmolality,Calculated 296.7 MOS/KG (273-304); Potassium 4.1 MMOL/L (3.5-5.1); Sodium 145 MMOL/L (136-145); Total Protein 5.7 G/DL (6.4-8.2)
[2021-09-16 04:42] LABS: Estimated Glom Filtration Rate 0 ML/MIN
[2021-09-16] MEDS ORDERED: MAGNESIUM HYDROXIDE SUSP 30 ML UDCUP PO PRN (08:29)
[2021-09-16] MEDS: INSULIN GLARGINE 100 UNIT/ML SUBCUT SCH (09:08)
[2021-09-16] MEDS: carvediloL 3.125 MG TABLET PO SCH (09:08)
[2021-09-16] MEDS: DILTIAZEM CD 120 MG CAPSULE PO SCH (09:08)
[2021-09-16] MEDS: PANTOPRAZOLE 40 MG VIAL IV SCH (09:22)
[2021-09-16] MEDS: CEFEPIME 1,000 MG in SODIUM CHLORIDE 0.9% 100 ML IV SCH ×2 (09:24→21:13)
[2021-09-16] MEDS: CYANOCOBALAMIN 500 MCG TABLET PO SCH (09:24)
[2021-09-16] MEDS: CALCIUM (CARBONATE)/VITAMIN D 600 MG-400 UNIT TABLET PO SCH (09:24)
[2021-09-16] MEDS: ASPIRIN EC 81 MG TABLET PO SCH (09:24)
[2021-09-16] MEDS: busPIRone 10 MG TABLET PO SCH ×3 (09:24→21:23)
[2021-09-16] MEDS: FUROSEMIDE 40 MG TABLET PO SCH (09:24)
[2021-09-16] MEDS: GABAPENTIN 400 MG CAPSULE PO SCH ×3 (09:43→21:24)
[2021-09-16] MEDS: DICLOFENAC SODIUM 50 MG TABLET PO SCH (11:08)
[2021-09-16] MEDS: sitaGLIPtin 25 MG TABLET PO SCH (11:08)
[2021-09-16] MEDS: SERTRALINE 50 MG TABLET PO SCH (11:08)
[2021-09-16] MEDS: POTASSIUM CHLORIDE 10 MEQ TABLET PO SCH (11:09)
[2021-09-16] MEDS: ACETAMINOPHEN 325 MG TABLET PO SCH ×2 (11:10→21:24)
[2021-09-16] MEDS: traMADol 50 MG TABLET PO SCH ×2 (11:11→21:24)
[2021-09-16] MEDS: MEMANTINE 10 MG TABLET PO SCH ×2 (11:19→21:24)
[2021-09-16] MEDS: INSULIN LISPRO 100 UNIT/ML SUBCUT SCH ×3 (11:29→21:09)
[2021-09-16] MEDS: LORazepam 2 MG/1 ML VIAL IV PRN ×2 (13:11→18:29)
[2021-09-16] MEDS ORDERED: DONEPEZIL 5 MG TABLET PO SCH (21:00)
[2021-09-16] MEDS: VANCOMYCIN INJ 1,250 MG in SODIUM CHLORIDE 0.9% 250 ML IV SCH (21:14)
[2021-09-16] MEDS: DOCUSATE SODIUM 100 MG CAPSULE PO SCH (21:23)
[2021-09-17] MEDS: BIMATOPROST 0.01% OPH SOLN 2.5 ML BOTTLE BOTH EYES SCH ×2 (00:20→20:43)
[2021-09-17] MEDS: DEXTROSE 5% NACL 0.9% 1,000 ML IV SCH ×3 (05:17→21:53)
[2021-09-17] MEDS: LORazepam 2 MG/1 ML VIAL IV PRN ×2 (06:02→15:42)
[2021-09-17] MEDS ORDERED: HALOPERIDOL 5 MG/ML AMP IM PRN (08:20)
[2021-09-17] MEDS: INSULIN LISPRO 100 UNIT/ML SUBCUT SCH ×5 (08:40→21:49)
[2021-09-17] MEDS: CYANOCOBALAMIN 500 MCG TABLET PO SCH (10:09)
[2021-09-17] MEDS: DILTIAZEM CD 120 MG CAPSULE PO SCH (10:10)
[2021-09-17] MEDS: POTASSIUM CHLORIDE 10 MEQ TABLET PO SCH (10:10)
[2021-09-17] MEDS: DICLOFENAC SODIUM 50 MG TABLET PO SCH (10:10)
[2021-09-17] MEDS: busPIRone 10 MG TABLET PO SCH ×3 (10:10→20:20)
[2021-09-17] MEDS: ASPIRIN EC 81 MG TABLET PO SCH (10:10)
[2021-09-17] MEDS: GABAPENTIN 400 MG CAPSULE PO SCH ×3 (10:11→20:20)
[2021-09-17] MEDS: traMADol 50 MG TABLET PO SCH ×2 (10:11→20:20)
[2021-09-17] MEDS: CALCIUM (CARBONATE)/VITAMIN D 600 MG-400 UNIT TABLET PO SCH (10:11)
[2021-09-17] MEDS: MEMANTINE 10 MG TABLET PO SCH ×2 (10:12→20:20)
[2021-09-17] MEDS: sitaGLIPtin 25 MG TABLET PO SCH (10:12)
[2021-09-17] MEDS: FUROSEMIDE 40 MG TABLET PO SCH (10:12)
[2021-09-17] MEDS: ACETAMINOPHEN 325 MG TABLET PO SCH ×2 (10:12→20:21)
[2021-09-17] MEDS: SERTRALINE 50 MG TABLET PO SCH (10:12)
[2021-09-17] MEDS: carvediloL 3.125 MG TABLET PO SCH (10:12)
[2021-09-17] MEDS: PANTOPRAZOLE 40 MG VIAL IV SCH (10:13)
[2021-09-17] MEDS: CEFEPIME 1,000 MG in SODIUM CHLORIDE 0.9% 100 ML IV SCH ×2 (10:13→20:16)
[2021-09-17] MEDS: INSULIN GLARGINE 100 UNIT/ML SUBCUT SCH (11:52)
[2021-09-17] MEDS: DESITIN 4OZ/NYSTATIN 15 GRAM MIXTURE PASTE TOP SCH ×2 (18:15→20:21)
[2021-09-17] MEDS: DOCUSATE SODIUM 100 MG CAPSULE PO SCH (20:20)
[2021-09-17] MEDS ORDERED: DOCUSATE SODIUM 100 MG/10 ML UDCUP PO SCH (21:00)
[2021-09-17] MEDS: VANCOMYCIN INJ 1,250 MG in SODIUM CHLORIDE 0.9% 250 ML IV SCH (21:53)
[2021-09-18] MEDS: DEXTROSE 5% NACL 0.9% 1,000 ML IV SCH (05:09)
[2021-09-18 05:36] LABS: Basophils # 0.1 10*3/uL (0.0-0.2); Basophils % 0.3 % (0.0-0.8); Eosinophils # 0.2 10*3/uL (0.0-0.87); Eosinophils % 0.7 % (0.00-10.9); Hematocrit 35.7 VOL% (35.7-47.0); Hemoglobin 10.7 GM/DL (12.0-16.0); Immature Granulocytes % 0.9 %; Lymphocytes # 1.9 10*3/uL (1.4-4.0); Lymphocytes % 8.3 % (21.3-54.2); Mean Corpuscular Volume 105.3 FL (87-102); Mean Platelet Volume 11.2 FL (9.6-12.0); Monocytes % 6.3 % (1.7-12.7); Neutrophils % 83.5 % (38.7-73.9); Platelet Count 194 T/CUMM (130-400); Red Blood Count 3.39 MC/CUMM (3.8-5.5); Red Cell Distribution Width 13.3 % (9.3-17.3); White Blood Count 22.8 T/CUMM (4-12)
[2021-09-18 06:17] LABS: Hypochromia 1+; Lymphocytes 7 % (20-55); Microcytosis 1+; Platelet Estimate Adequate; Segmented Neutrophils 90 % (50-85); Total Cells Counted 100
[2021-09-18] MEDS: LORazepam 2 MG/1 ML VIAL IV PRN (07:09)
[2021-09-18] MEDS ORDERED: traMADol 50 MG TABLET PO SCH (09:00)
[2021-09-18] MEDS: INSULIN LISPRO 100 UNIT/ML SUBCUT SCH ×2 (10:45→10:46)
[2021-09-18] MEDS: busPIRone 10 MG TABLET PO SCH (10:45)
[2021-09-18] MEDS: ASPIRIN EC 81 MG TABLET PO SCH (10:46)
[2021-09-18] MEDS: CALCIUM (CARBONATE)/VITAMIN D 600 MG-400 UNIT TABLET PO SCH (10:46)
[2021-09-18] MEDS: sitaGLIPtin 25 MG TABLET PO SCH (10:47)
[2021-09-18] MEDS: DILTIAZEM CD 120 MG CAPSULE PO SCH (10:47)
[2021-09-18] MEDS: INSULIN GLARGINE 100 UNIT/ML SUBCUT SCH (10:47)
[2021-09-18] MEDS: FUROSEMIDE 40 MG TABLET PO SCH (10:47)
[2021-09-18] MEDS: DESITIN 4OZ/NYSTATIN 15 GRAM MIXTURE PASTE TOP SCH (10:48)
[2021-09-18] MEDS: GABAPENTIN 400 MG CAPSULE PO SCH (10:48)
[2021-09-18] MEDS: MEMANTINE 10 MG TABLET PO SCH (10:48)
[2021-09-18] MEDS: ACETAMINOPHEN 325 MG TABLET PO SCH (10:49)
[2021-09-18] MEDS: CYANOCOBALAMIN 500 MCG TABLET PO SCH (10:49)
[2021-09-18] MEDS: SERTRALINE 50 MG TABLET PO SCH (10:49)
[2021-09-18] MEDS: POTASSIUM CHLORIDE 10 MEQ TABLET PO SCH (10:50)
[2021-09-18] MEDS: carvediloL 3.125 MG TABLET PO SCH (10:50)
[2021-09-18] MEDS: DICLOFENAC SODIUM 50 MG TABLET PO SCH (10:50)
[2021-09-18] MEDS: PANTOPRAZOLE 40 MG VIAL IV SCH (10:51)
[2021-09-18] MEDS: CEFEPIME 1,000 MG in SODIUM CHLORIDE 0.9% 100 ML IV SCH (10:59)
[2021-09-18 11:58] VITALS: BP 179/86
== END 2021-09-18 12:25 | DRG 867 ==
LOC: EDBD → EDUNIT# → N.ED 22:23 → N.EDINP 09-16 02:22 → N.TELEN 09-16 12:44
PROVIDERS: ADMIT Family Medicine; ATTEND Family Medicine